=== PATIENT | female | born 1975 | race Caucasian/White ===

== ENCOUNTER → 2019-01-05 | Outpatient (CLI) | payer BC ==
[~2019-01-05] MED LIST: ALBU2.5V4 INH; ALBU8.5HRX INH; ATEN25TA PO; BLAC20TA PO; BUDE180A IH; CHOL10003 PO; ESTR1TAB24 PO; FLUO20CA25 PO; MECL-124 PO; PRED10TA PO
[2019-01-05 13:05] LABS: BASOPHILS % (AUTO) 0 % (0-10); EOSINOPHILS # (AUTO) 0.1 10^3/uL (0.0-0.3); EOSINOPHILS % (AUTO) 1 % (0-10); HEMATOCRIT 42 % (35-52); HEMOGLOBIN 14.5 G/DL (11.5-16.0); LYMPHOCYTES # (AUTO) 1.6 X 10^3 (1.0-4.0); LYMPHOCYTES % (AUTO) 25 % (12-44); MEAN CORPUSCULAR HEMOGLOBIN 29 PG (25-34); MEAN CORPUSCULAR HGB CONC 34 G/DL (32-36); MEAN CORPUSCULAR VOLUME 85 FL (80-99); MEAN PLATELET VOLUME 9.6 FL (7.4-10.4); MONOCYTES # (AUTO) 0.3 X 10^3 (0.0-1.0); MONOCYTES % (AUTO) 4 % (0-12); NEUTROPHILS # (AUTO) 4.4 X 10^3 (1.8-7.8); NEUTROPHILS % (AUTO) 69 % (42-75); PLATELET COUNT 315 10^3/uL (130-400); WHITE BLOOD COUNT 6.3 10^3/uL (4.3-11.0)
[2019-01-05 13:13] LABS: FIBRIN DEGRADATION PRODUCTS 0.47 UG/ML (0.00-0.49); INR 0.9 (0.8-1.4); PROTHROMBIN TIME PATIENT 12.8 SEC (12.2-14.7)
--- NOTE | 2019-01-05 13:37 | Diagnostic Imaging Report ---
INDICATION: Shortness of breath and fatigue. TIME OF EXAM: 12:46 p.m. COMPARISON: No prior studies are available for comparison. FINDINGS: The heart size is normal. The pulmonary vascularity is unremarkable. The lungs are clear. No infiltrate, effusion or pneumothorax is detected. IMPRESSION: No acute cardiopulmonary process is detected. Dictated by: Dictated on workstation # [id number]
[2019-01-05 13:41] LABS: ERYTHROCYTE SEDIMENTATION RATE 9 MM/HR (0-20)
== END ==
LOC: RAD 12:30
PROVIDERS: ATTEND Internal Medicine
DX: R06.00 Dyspnea, unspecified (principal); R00.0 Tachycardia, unspecified; R53.83 Other fatigue; R06.02 Shortness of breath
CPT/HCPCS: 36415; 71046; 85025; 85379; 85610; 85652

== ENCOUNTER → 2019-03-16 | Outpatient (CLI) | payer BC ==
[~2019-03-16] VITALS: Ht 172.7 cm; Wt 106.8 kg
[~2019-03-16] MED LIST changes: +CLONIDINE; +ESTR1TAB27 PO; +FLUO20TA28 PO; +KETOROLAC 30 MG/ML VIAL IV PRN; +LEVOTHYROXINE; +LORAZEPAM; +MECL-106 PO; +PROGESTERONE; +VICTOZA
[2019-03-16 17:22] VITALS: BP 110/71
[2019-03-16] MEDS: LACTATED RINGERS 1,000 ML IV SCH ×2 (17:50→18:48)
--- NOTE | 2019-03-16 19:10 | NUR ---
TRANSPORTED BY TO ROOM 402. REPORT TO 4TH FLOOR RNLINDA, AND CARE OF PT TRANSFERRED TO [address] [place] [address]
[2019-03-16 20:59] VITALS: BP 110/71
== END ==
LOC: SDC 17:08
PROVIDERS: ATTEND Nurse Practitioner Family
DX: E86.0 Dehydration (principal)
CPT/HCPCS: 96360; 96374

== ENCOUNTER 2019-08-19 17:17 | Outpatient (CLI) | payer BC ==
[~2019-08-19] VITALS: Ht 172.7 cm; Wt 106.8 kg
[2019-08-19 09:15] VITALS: BP 121/79
[2019-08-19 16:45] VITALS: BP 119/76
[2019-08-19] MEDS: LACTATED RINGERS 1,000 ML IV SCH ×2 (17:00→18:10)
[~2019-08-19 17:17] MED LIST changes: -KETOROLAC 30 MG/ML VIAL IV PRN; -MECL-106 PO; +MECL-149 PO
[2019-08-19] MEDS ORDERED: KETOROLAC 30 MG/ML VIAL ONE (17:29)
[2019-08-19] MEDS ORDERED: CATHETER FLUSH 10 ML SYR IV PRN (17:45)
[2019-08-19] MEDS ORDERED: ONDANSETRON 4 MG/2 ML (SDV) Z0FRAN IVP PRN (17:45)
[2019-08-19] MEDS ORDERED: KETOROLAC 30 MG/ML VIAL IVP PRN (17:45)
== END 2019-08-19 19:20 | disposition home or self-care (01) ==
LOC: SDC 17:17
PROVIDERS: ATTEND Nurse Practitioner Family
DX: J11.1 Influenza due to unidentified influenza virus with other respiratory manifestations (principal)
CPT/HCPCS: 96361; 96374; 96375

== ENCOUNTER 2019-12-11 13:39 | Outpatient (CLI) | payer BC ==
[~2019-12-11] VITALS: Ht 172.7 cm; Wt 111.4 kg
[2019-12-11] MEDS ORDERED: LACTATED RINGERS 2,000 ML IV ONE (14:06)
[2019-12-11 14:15] VITALS: BP 125/90
[2019-12-11] MEDS ORDERED: LACTATED RINGERS 1,000 ML IV SCH (14:15)
--- NOTE | 2019-12-11 16:13 | NUR ---
IVF COMPLETED. IV REMOVED WITH CATHETER TIP INTACT. PATIENT VOIDED X1. [place] [facility] [place]
== END 2019-12-11 16:13 | disposition home or self-care (01) ==
LOC: SDC 13:39
PROVIDERS: ATTEND Internal Medicine
DX: E86.0 Dehydration (principal)
CPT/HCPCS: 96360; 96361

== ENCOUNTER 2019-12-31 14:16 | Emergency (ER) | payer BC ==
[~2019-12-31] VITALS: Ht 172 cm; Wt 108.0 kg
[2019-12-31] MEDS ORDERED: LACTATED RINGERS 1,000 ML IV SCH (15:15)
[2019-12-31] MEDS ORDERED: ONDANSETRON 4 MG/2 ML (SDV) Z0FRAN IVP ONE (15:15)
[2019-12-31] MEDS ORDERED: fentaNYL INJECTION 100 MCG/2 ML AMP IVP ONE (15:15)
--- NOTE | 2019-12-31 15:15 | ED GI ---
General Chief Complaint: Abdominal/GI Problems Stated Complaint: ABD PAIND Source of Information: Patient Exam Limitations: No Limitations History of Present Illness Date Seen by Provider: Dec 31, 2019 Time Seen by Provider: 15:13 Initial Comments Patient complains of left upper quadrant pain for the past 2-3 days. Pain is sharp and stabbing. It has gotten more severe. She was scheduled for an outpatient CT scan tomorrow but was unable to wait. She is nauseated but has not vomited. She has a history of a salmonella infection years ago. Allergies and Home Medications Allergies Coded Allergies: latex (Unverified Allergy, Severe, 09/08/14) Sulfa (Sulfonamide Antibiotics) (Verified Allergy, Unknown, 09/08/14) Home Medications Estradiol 1 Mg Tablet, 1 MG PO DAILY, (Reported) Fluoxetine HCl 20 Mg Tablet, 20 MG PO DAILY, (Reported) Meclizine HCl 25 Mg Tablet, 25 MG PO BID, (Reported) Patient Home Medication List Home Medication List Reviewed: Yes Review of Systems Review of Systems Constitutional: No fever; malaise EENTM: No Symptoms Reported Respiratory: No Symptoms Reported Cardiovascular: No Symptoms Reported Gastrointestinal: Abdominal Pain, Nausea Musculoskeletal: no symptoms reported Skin: no symptoms reported All Other Systems Reviewed Negative Unless Noted: Yes Past Efqavkg-Yzlhgk-Oscpbq Hx Patient Social History Recent Foreign Travel: No Contact w/Someone Who Travel: No Immunizations Up To Date Tetanus Booster (TDap): Less than 5yrs Past Medical History Surgeries: Yes (Portion of colon removed) Respiratory: No Cardiac: Yes Hypertension Neurological: No Reproductive Disorders: No Female Reproductive Disorders: Denies Sexually Transmitted Disease: No HIV/AIDS: No Genitourinary: No Gastrointestinal: Yes (Left infarcted right colon) Gall Bladder Disease Musculoskeletal: No Endocrine: No Cancer: No Psychosocial: Yes Anxiety, Depression Integumentary: No Blood Disorders: No Adverse Reaction/Blood Tranf: No Family Medical History Prostate cancer 21 FATHER No Family History of: AIDS Abdominal aortic aneurysm [place]'s disease Alcoholism Alzheimer's disease Aphasia Arthritis Asthma Cancer of mouth Cardiovascular disease Cataracts Colon cancer Completed stroke Congenital disease Congenital heart disease Coronary thrombosis Cystic fibrosis Deafness or hearing loss Dementia Diabetes mellitus Drug abuse Dysphasia Fibrocystic disease of breast Gastroenteritis Glaucoma Headache disorder Hypercholesterolemia Hypertension Infertility Kidney disease Myocardial infarction Neoplasm Not obtainable due to adoption Osteoporosis Parkinson's disease Psychosocial problem Respiratory disorder Seizure disorder Severe allergy Thyroid disease Tuberculosis Visual disorder Physical Exam Vital Signs Vital Signs - First Documented 12/31/19 14:55 Temp 36.7 Pulse 87 Resp 16 B/P (MAP) 120/91 (101) Pulse Ox 98 O2 Delivery Room Air Capillary Refill : Height/Weight/BMI Height: 5'10.00" Weight: 250lbs. 2.0oz. 113.377620nt; BMI Method: General Appearance: WD/WN, mild distress HEENT: PERRL/EOMI, pharynx normal Neck: supple Respiratory: lungs clear, normal breath sounds Cardiovascular: regular rate, rhythm, no edema Gastrointestinal: No guarding, No rebound; tenderness (tender left upper quadrant) Extremities: normal range of motion, normal inspection Neurologic/Psychiatric: alert, normal mood/affect Skin: normal color, warm/dry Focused Exam Lactate Level 12/31/19 15:28: Lactic Acid Level 0.81 Lactic Acid Level Laboratory Tests Test 12/31/19 15:28 Lactic Acid Level 0.81 MMOL/L (0.50-2.00) Progress/Results/Core Measures Results/Orders Lab Results Laboratory Tests Test 12/31/19 14:58 12/31/19 15:10 12/31/19 15:28 Range/Units Urine Color YELLOW Urine Clarity CLEAR Urine pH 6.0 5-9 Urine Specific [place] <=1.005 1.016-1.022 Urine Protein NEGATIVE NEGATIVE Urine Glucose (UA) NEGATIVE NEGATIVE Urine Ketones NEGATIVE NEGATIVE Urine Nitrite NEGATIVE NEGATIVE Urine Bilirubin NEGATIVE NEGATIVE Urine Urobilinogen 0.2 < = 1.0 MG/DL Urine Leukocyte Esterase NEGATIVE NEGATIVE Urine RBC (Auto) NEGATIVE NEGATIVE Urine RBC NONE /HPF Urine WBC 0-2 /HPF Urine Squamous Epithelial Cells 2-5 /HPF Urine Crystals PRESENT H /LPF Urine Amorphous Sediment FEW REESE URATES H /LPF Urine Bacteria FEW H /HPF Urine Casts NONE /LPF Urine Mucus NEGATIVE /LPF Urine Culture Indicated YES White Blood Count 7.7 4.3-11.0 10^3/uL Red Blood Count 4.84 4.35-5.85 10^6/uL Hemoglobin 14.1 11.5-16.0 G/DL Hematocrit 42 35-52 % Mean Corpuscular Volume 86 80-99 FL Mean Corpuscular Hemoglobin 29 25-34 PG Mean Corpuscular Hemoglobin Concent 34 32-36 G/DL Red Cell Distribution Width 13.1 10.0-14.5 % Platelet Count 328 130-400 10^3/uL Mean Platelet Volume 9.6 7.4-10.4 FL Neutrophils (%) (Auto) 69 42-75 % Lymphocytes (%) (Auto) 24 12-44 % Monocytes (%) (Auto) 5 0-12 % Eosinophils (%) (Auto) 2 0-10 % Basophils (%) (Auto) 0 0-10 % Neutrophils # (Auto) 5.3 1.8-7.8 X 10^3 Lymphocytes # (Auto) 1.8 1.0-4.0 X 10^3 Monocytes # (Auto) 0.4 0.0-1.0 X 10^3 Eosinophils # (Auto) 0.1 0.0-0.3 10^3/uL Basophils # (Auto) 0.0 0.0-0.1 10^3/uL Sodium Level 136 135-145 MMOL/L Potassium Level 4.5 3.6-5.0 MMOL/L Chloride Level 104 98-107 MMOL/L Carbon Dioxide Level 21 21-32 MMOL/L Anion Gap 11 5-14 MMOL/L Blood Urea Nitrogen 9 7-18 MG/DL Creatinine 0.95 0.60-1.30 MG/DL Estimat Glomerular Filtration Rate > 60 BUN/Creatinine Ratio 9 Glucose Level 85 70-105 MG/DL Calcium Level 9.1 8.5-10.1 MG/DL Corrected Calcium 8.9 8.5-10.1 MG/DL Total Bilirubin 0.7 0.1-1.0 MG/DL Aspartate Amino Transf (AST/SGOT) 27 5-34 U/L Alanine Aminotransferase (ALT/SGPT) 23 0-55 U/L Alkaline Phosphatase 67 40-136 U/L Total Protein 7.4 6.4-8.2 GM/DL Albumin 4.2 3.2-4.5 GM/DL Lipase 26 8-78 U/L Lactic Acid Level 0.81 0.50-2.00 MMOL/L My Cathy Orders - ESTEPHANIA CHIANG MD Cbc With Automated Diff (12/31/19 15:02) Comprehensive Metabolic Panel (12/31/19 15:02) Lactic Acid Analyzer (12/31/19 15:02) Lipase (12/31/19 15:02) Ua Culture If Indicated (12/31/19 15:02) Ct Abdomen/Pelvis W (12/31/19 15:07) Ondansetron Injection (Zofran Injectio (12/31/19 15:15) Lactated Ringers (Lr 1000 Ml Iv Solution (12/31/19 15:15) Fentanyl Injection (Sublimaze Injection (12/31/19 15:15) Iohexol Injection (Omnipaque 350 Mg/Ml 1 (12/31/19 15:45) Received Contrast (Hold Metformin- Contr (12/31/19 15:45) Sodium Chloride Flush (Catheter Flush Sy (12/31/19 15:45) Ns (Ivpb) (Sodium Chloride 0.9% Ivpb Bag (12/31/19 15:45) Urine Culture (12/31/19 14:58) Medications Given in ED Current Medications Medications Dose Ordered Sig/Valentin Route Start Time Stop Time Status Last Admin Dose Admin Fentanyl Citrate 75 mcg ONCE ONCE IVP 12/31/19 15:15 12/31/19 15:16 DC 12/31/19 15:20 75 MCG Iohexol 100 ml ONCE ONCE IV 12/31/19 15:45 12/31/19 15:46 DC 12/31/19 16:07 100 ML Ondansetron HCl 4 mg ONCE ONCE IVP 12/31/19 15:15 12/31/19 15:16 DC 12/31/19 15:20 4 MG Sodium Chloride 10 ml NEEDED PRN IV 12/31/19 15:45 12/31/19 16:07 10 ML Sodium Chloride 100 ml ONCE ONCE IV 12/31/19 15:45 12/31/19 15:46 DC 12/31/19 16:07 80 ML Vital Signs/I&O 12/31/19 14:55 Temp 36.7 Pulse 87 Resp 16 B/P (MAP) 120/91 (101) Pulse Ox 98 O2 Delivery Room Air Progress Progress Note : Time: 16:28 Progress Note Test results reviewed and discussed with patient. She feels better after IV fluids and medications. No clear source for her pain. Advised follow up with GI. We'll prescribe hydrocodone limited quantity. Departure Impression Primary Impression: Abdominal pain Disposition: 01 HOME, SELF-CARE Condition: Stable Departure-Patient Inst. Decision time for Depature: 16:29 Referrals: SHEA COFFEY DO (PCP/Family) Primary Care Physician Patient Instructions: Acute Abdomen (Belly Pain), Adult (DC) Add. Discharge Instructions: Clear liquid diet for next 24 hours. Increase Protonix to twice daily. Hydrocodone for serious pain. Call your GI doctor tomorrow for follow-up. All discharge instructions reviewed with patient and/or family. Voiced understanding. Scripts Hydrocodone/Acetaminophen (Hydrocodone-Acetamin 5-325 mg) 1 Each Tablet 1 EACH PO Q4H, #12 TAB Prov: ESTEPHANIA CHIANG MD 12/31/19 ESTEPHANIA CHIANG MD Dec 31, 2019 15:15
[2019-12-31 15:21] LABS: BILIRUBIN,URINE NEGATIVE (NEGATIVE); CLARITY,URINE CLEAR; COLOR,URINE YELLOW; GLUCOSE, URINE (UA) NEGATIVE (NEGATIVE); KETONES,URINE NEGATIVE (NEGATIVE); LEUKOCYTE ESTERASE ,URINE NEGATIVE (NEGATIVE); NITRITE,URINE NEGATIVE (NEGATIVE); PROTEIN,URINE NEGATIVE (NEGATIVE)
[2019-12-31 15:21] LABS: BASOPHILS % (AUTO) 0 % (0-10); EOSINOPHILS # (AUTO) 0.1 10^3/uL (0.0-0.3); EOSINOPHILS % (AUTO) 2 % (0-10); HEMATOCRIT 42 % (35-52); HEMOGLOBIN 14.1 G/DL (11.5-16.0); LYMPHOCYTES # (AUTO) 1.8 X 10^3 (1.0-4.0); LYMPHOCYTES % (AUTO) 24 % (12-44); MEAN CORPUSCULAR HEMOGLOBIN 29 PG (25-34); MEAN CORPUSCULAR HGB CONC 34 G/DL (32-36); MEAN CORPUSCULAR VOLUME 86 FL (80-99); MEAN PLATELET VOLUME 9.6 FL (7.4-10.4); MONOCYTES # (AUTO) 0.4 X 10^3 (0.0-1.0); MONOCYTES % (AUTO) 5 % (0-12); NEUTROPHILS # (AUTO) 5.3 X 10^3 (1.8-7.8); NEUTROPHILS % (AUTO) 69 % (42-75); PLATELET COUNT 328 10^3/uL (130-400); RED CELL DISTRIBUTION WIDTH 13.1 % (10.0-14.5); WHITE BLOOD COUNT 7.7 10^3/uL (4.3-11.0)
[2019-12-31 15:31] LABS: ALBUMIN 4.2 GM/DL (3.2-4.5)
[2019-12-31 15:32] LABS: CHLORIDE 104 MMOL/L (98-107); POTASSIUM 4.5 MMOL/L (3.6-5.0); SODIUM 136 MMOL/L (135-145)
[2019-12-31 15:33] LABS: CALCIUM 9.1 MG/DL (8.5-10.1)
[2019-12-31 15:34] LABS: GLUCOSE 85 MG/DL (70-105); TOTAL PROTEIN 7.4 GM/DL (6.4-8.2)
[2019-12-31 15:35] LABS: CARBON DIOXIDE 21 MMOL/L (21-32)
[2019-12-31 15:36] LABS: BILIRUBIN,TOTAL 0.7 MG/DL (0.1-1.0)
[2019-12-31 15:37] LABS: ALKALINE PHOSPHATASE 67 U/L (40-136)
[2019-12-31 15:38] LABS: CREATININE SERUM 0.95 MG/DL (0.60-1.30); GFR ESTIMATED > 60
[2019-12-31 15:39] LABS: BUN/CREATININE RATIO 9
[2019-12-31 15:41] LABS: ALANINE AMINOTRANSFERASE 23 U/L (0-55); LIPASE 26 U/L (8-78)
[2019-12-31] MEDS ORDERED: IOHEXOL 350 MG/ML 100 ML (OMNIPAQUE 350) VIAL IV ONE (15:45)
[2019-12-31] MEDS ORDERED: CATHETER FLUSH 10 ML SYR IV PRN (15:45)
[2019-12-31] MEDS ORDERED: HOLD METFORMIN - RECEIVED CONTRAST 20 ML VIAL IV SCH (15:45)
[2019-12-31] MEDS ORDERED: NS 100 ML (IVPB) BAG IV ONE (15:45)
[2019-12-31 15:50] LABS: AMORPHOUS SEDIMENT,UR FEW AMOR URATES /LPF; BACTERIA,URINE FEW /HPF; WBC,URINE 0-2 /HPF
--- NOTE | 2019-12-31 16:13 | Diagnostic Imaging Report ---
PROCEDURE: CT abdomen and pelvis with contrast. TECHNIQUE: Multiple contiguous axial images were obtained through the abdomen and pelvis after administration of intravenous contrast. Auto Exposure Controls were utilized during the CT exam to meet ALARA standards for radiation dose reduction. INDICATION: Severe left-sided abdominal pain. FINDINGS: Lung bases are clear. Liver appears normal. Gallbladder is surgically absent. Portal vein is patent. Common duct is not dilated. Pancreas appears normal. Spleen is not enlarged. Small bowel is nondilated. The appendix appears to be surgically absent. Kidneys and adrenals appear normal. There is a moderate amount of stool in the colon. There are no acute inflammatory changes. Urinary bladder appears normal. Uterus is surgically absent. Adnexa are unremarkable. There is no intraperitoneal free air or free fluid. IMPRESSION: Postop changes from cholecystectomy, appendectomy, and hysterectomy. There is no acute abnormality seen in the abdomen or pelvis. There is fecal stasis present. Patient has multiple injection granulomas in the subcutaneous fat of the buttocks. Dictated by: Dictated on workstation # [id number]
[2019-12-31] MEDS ORDERED: HYDR-83 PO (16:30)
[2019-12-31 16:51] VITALS: BP 117/83
== END 2019-12-31 16:51 | disposition home or self-care (01) ==
LOC: EDUNIT# 14:16 → ER 14:18
DX: R10.12 Left upper quadrant pain (principal); F41.9 Anxiety disorder, unspecified; F32.9 Major depressive disorder, single episode, unspecified; Z91.040 Latex allergy status; Z88.2 Allergy status to sulfonamides; Z79.52 Long term (current) use of systemic steroids; Z80.42 Family history of malignant neoplasm of prostate
CPT/HCPCS: 36415; 74177; 80053; 81000; 83605; 83690; 85025; 87088

== ENCOUNTER 2020-05-05 10:32 | Outpatient (CLI) | payer BC ==
[~2020-05-05] VITALS: Ht 172 cm; Wt 109.9 kg
[~2020-05-05 10:32] MED LIST changes: +ACHD5005 PO
[2020-05-05] MEDS ORDERED: LACTATED RINGERS 2,000 ML IV ONE (11:11)
[2020-05-05 11:27] VITALS: BP 107/76
[2020-05-05] MEDS ORDERED: ONDANSETRON 4 MG/2 ML (SDV) Z0FRAN IV ONE (11:30)
[2020-05-05] MEDS ORDERED: LACTATED RINGERS 1,000 ML IV SCH (11:30)
== END 2020-05-05 13:27 ==
LOC: SDC 10:32
PROVIDERS: ATTEND Internal Medicine
DX: E86.0 Dehydration (principal)
CPT/HCPCS: 96360; 96361

== ENCOUNTER → 2020-09-05 | Outpatient (CLI) | payer BC ==
[~2020-09-05] VITALS: Ht 172.7 cm; Wt 111.4 kg
[2020-09-05] MEDS: LACTATED RINGERS 1,000 ML IV SCH ×2 (12:37→13:38)
[2020-09-05 14:38] VITALS: BP 112/78
== END ==
LOC: SDC 11:57
PROVIDERS: ATTEND Nurse Practitioner Family
DX: E86.0 Dehydration (principal); G56.01 Carpal tunnel syndrome, right upper limb; M79.12 Myalgia of auxiliary muscles, head and neck; A04.8 Other specified bacterial intestinal infections; K31.84 Gastroparesis
CPT/HCPCS: 36415; 83735; 85652; 86812; 96360; 96361

== ENCOUNTER 2021-06-13 13:09 | Outpatient (CLI) | payer BC ==
[2021-06-13] MEDS ORDERED: LACTATED RINGERS 2,000 ML IV NR (13:30)
[2021-06-13 13:37] VITALS: BP 136/89
== END 2021-06-13 15:40 | disposition home or self-care (01) ==
LOC: SDC 13:09
PROVIDERS: ATTEND Nurse Practitioner Family
DX: E86.0 Dehydration (principal); J20.9 Acute bronchitis, unspecified
CPT/HCPCS: 96360; 96361

== ENCOUNTER 2021-11-23 12:52 | Outpatient (CLI) | payer BC ==
[2021-11-23] MEDS ORDERED: LACTATED RINGERS 2,000 ML IV ONE (13:08)
[2021-11-23] MEDS ORDERED: LACTATED RINGERS 2,000 ML IV SCH (13:30)
[2021-11-23 15:25] VITALS: BP 127/72
== END 2021-11-23 15:25 ==
LOC: SDC 12:52
PROVIDERS: ATTEND Nurse Practitioner Family
DX: E86.0 Dehydration (principal)
CPT/HCPCS: 96360; 96361

== ENCOUNTER 2023-03-27 11:04 | Outpatient (CLI) | payer BC ==
[~2023-03-27 11:04] MED LIST changes: -MECL-149 PO; +MECL-291 PO
[2023-03-27 11:15] VITALS: BP 129/95
[2023-03-27] MEDS ORDERED: LACTATED RINGERS 1,000 ML 2,000 ML IV SCH (11:30)
[2023-03-27] MEDS ORDERED: CATHETER FLUSH 10 ML SYR IVP PRN (11:30)
== END 2023-03-27 13:45 | disposition home or self-care (01) ==
LOC: SDC 11:04
PROVIDERS: ATTEND Nurse Practitioner Family
DX: E86.0 Dehydration (principal)
CPT/HCPCS: 96360; 96361